=== PATIENT | female | born 1985 | race Caucasian/White ===

== ENCOUNTER → 2019-10-23 | Outpatient (CLI) | payer OTHER | LOC: LAB 14:05 | DX: Z20.828 Contact with and (suspected) exposure to other viral communicable diseases (principal) ==

== ENCOUNTER → 2023-04-06 | Outpatient (CLI) | payer BC | LOC: MAMMO 04-05 11:00 | DX: Z12.31 Encounter for screening mammogram for malignant neoplasm of breast (principal) ==

== ENCOUNTER → 2023-07-30 | Outpatient (CLI) | payer BC ==
[2023-07-30 14:08] LABS: BASO # 0.05 K/mm3 (0.02-0.10); EOS % 1.4 % (1.0-5.0); HEMATOCRIT 39.8 % (37.0-47.0); HEMOGLOBIN 13.1 g/dL (12.5-16.0); LYMPH# 2.19 K/mm3 (1.50-4.00); MEAN CELL VOLUME 91 fl (78-100); MEAN CORPUSCULAR HEMOGLOBIN 30 pg (27-31); MEAN CORPUSCULAR HGB CONC 33 g/dL (33-37); MEAN PLATELET VOLUME 9.4 fl (7.4-10.4); MONO # 0.97 K/mm3 (0.20-0.80); NEU # 10.38 K/mm3 (1.40-6.50); PLATELET COUNT 365 K/mm3 (130-400); RED BLOOD COUNT 4.36 M/mm3 (4.10-5.30); RED CELL DISTRIBUTION WIDTH 11.9 % (11.5-14.5); WHITE BLOOD COUNT 13.8 K/mm3 (4.8-10.8)
[2023-07-30 14:14] LABS: ALBUMIN 4.3 g/dL (3.5-5.0); SODIUM 138 mmol/L (136-145)
[2023-07-30 14:16] LABS: CALCIUM 9.5 mg/dL (8.3-10.5)
[2023-07-30 14:17] LABS: GLUCOSE 93 mg/dL (65-105); TOTAL PROTEIN 7.5 g/dL (6.4-8.3)
[2023-07-30 14:18] LABS: CARBON DIOXIDE 24 mmol/L (22-29)
[2023-07-30 14:19] LABS: TOTAL BILIRUBIN 0.4 mg/dL (0.2-1.2)
[2023-07-30 14:22] LABS: AST-SGOT 15 U/L (5-34)
[2023-07-30 14:23] LABS: ALT/SGPT 12 U/L (0-55)
[2023-07-30 14:28] LABS: D-DIMER 0.06 mg/L FEU (0.15-0.50)
[2023-07-30 14:30] LABS: TROPONIN-I < 0.030 ng/mL (0.00-0.033)
== END ==
LOC: RAD 12:48 → AMSURD 12:48
PROVIDERS: Nurse Practitioner Family
DX: R00.2 Palpitations (principal)

== ENCOUNTER → 2023-08-04 | Outpatient (CLI) | payer BC | LOC: RAD 06:15 → VAS 12:59 → RAD 17:15 | DX: R00.2 Palpitations (principal) ==

== ENCOUNTER → 2024-04-10 | Outpatient (CLI) | payer BC | LOC: MAMMO 07:59 | DX: Z12.31 Encounter for screening mammogram for malignant neoplasm of breast (principal) ==